=== PATIENT | male | born 1975 | race Caucasian/White ===

== ENCOUNTER 2022-06-17 14:32 | Emergency (ER) | payer MEDICAID ==
[~2022-06-17] VITALS: Ht 182.9 cm; Wt 179.2 kg
[2022-06-17 15:20] VITALS: BP 154/86
[2022-06-17] MEDS ORDERED: IBUP-2213 PO (16:26)
[2022-06-17] MEDS: KETOROLAC 30 MG/ML VIAL IM ONE (16:59)
== END 2022-06-17 17:00 | disposition home or self-care (01) ==
LOC: MED 14:32
DX: M25.552 Pain in left hip (principal); M25.562 Pain in left knee; E66.01 Morbid (severe) obesity due to excess calories; Z79.1 Long term (current) use of non-steroidal anti-inflammatories (NSAID); W01.0XXA Fall on same level from slipping, tripping and stumbling without subsequent striking against object, initial encounter; Y93.01 Activity, walking, marching and hiking; Y92.89 Other specified places as the place of occurrence of the external cause; Y99.8 Other external cause status
CPT/HCPCS: 73502; 73562; 96372; 99284; J1885